=== PATIENT | female | born 1995 | race Hispanic/Latino ===

== ENCOUNTER 2018-03-25 07:37 | Outpatient (CLI) | payer BC ==
--- NOTE | 2018-03-25 10:03 | ULT ---
ABDOMINAL ULTRASOUND: HISTORY: Epigastric pain. FINDINGS: Real-time imaging of the upper abdomen was performed. This shows a normal-appearing gallbladder. Th e common duct is in the 3 mm range. Visualized liver parenchyma shows no focal abnormalities. It me asures 17 cm in length. The spleen measures 10.6 cm. Right and left kidneys are normal in size and not obstructed. The pancreas is obscured. The abdomin al aorta and IVC appear unremarkable. IMPRESSION: Unremarkable abdomen ultrasound. POS: [facility]
--- NOTE | 2018-03-25 11:28 | RAD ---
UPPER GI: HISTORY: Epigastric pain. EXPOSURE: 2.3 minutes. 15.34 mGy*^m2. FINDINGS: [employer] CHEST RADIOGRAPH: Normal cardiac silhouette. The pulmonary vessels and hilum are normal. Costophrenic angles are mikki r. No masses or consolidation. No pneumothorax or osseous abnormalities. The thoracic esophagus has an overall normal course and caliber. There is evidence of a small amount of reflux during intermittent fluoroscopy. The gastric mucosa has an overall normal appearance. No filling defects. The duodenal bulb and duod enum are unremarkable. IMPRESSION: A small amount of intermittent reflux during fluoroscopy. POS: [facility]
== END 2018-03-25 07:38 | disposition home or self-care (01) ==
LOC: ULT 07:37
PROVIDERS: ATTEND Internal Medicine Gastroenterology
DX: K58.9 Irritable bowel syndrome, unspecified (principal); R10.13 Epigastric pain; R11.0 Nausea; K21.9 Gastro-esophageal reflux disease without esophagitis
CPT/HCPCS: 74220; 76700